=== PATIENT | male | born 1995 ===

== ENCOUNTER 2017-09-07 03:03 | Inpatient (IN) | payer OTHER ==
--- NOTE | 2017-09-07 03:31 | C.PDOC ---
History Of Present Illness 22 year old male presents to the ER as a psych transfer from [facility] for admission. Denies physical complaints at this time. Chief Complaint (Nursing): Psychiatric Evaluation History Per: Patient History/Exam Limitations: no limitations Onset/Duration Of Symptoms: Days Current Symptoms Are (Timing): Still Present Involuntary Hold By: None Past Medical History Reviewed: Historical Data, Nursing Documentation, Vital Signs Vital Signs: Last Vital Signs Temp 97.9 F 09/07/17 03:06 Pulse 74 09/07/17 03:06 Resp 19 09/07/17 03:06 BP 125/72 09/07/17 03:06 Pulse Ox 100 09/07/17 03:32 Family History: States: Unknown Family Hx - Social History Hx Alcohol Use: No Hx Substance Use: No Review Of Systems Constitutional: Negative for: Fever, Chills Cardiovascular: Negative for: Chest Pain, Palpitations Respiratory: Negative for: Cough, Shortness of Breath Gastrointestinal: Negative for: Nausea, Vomiting, Abdominal Pain Physical Exam - Physical Exam Appears: Non-toxic, No Acute Distress Skin: Normal Color, Warm, Dry Head: Atraumatic, Normacephalic Eye(s): bilateral: Normal Inspection Oral Mucosa: Moist Neck: Normal, Supple Chest: Symmetrical, No Tenderness Cardiovascular: Rhythm Regular Respiratory: Normal Breath Sounds, No Rales, No Rhonchi, No Wheezing Gastrointestinal/Abdominal: Soft, No Tenderness Neurological/Psych: Oriented x3, Normal Speech ED Course And Treatment O2 Sat by Pulse Oximetry: 100 Disposition Discussed With : Lauren Mckeon Doctor Will See Patient In The: Hospital Counseled Patient/Family Regarding: Diagnosis - Disposition Disposition: HOSPITALIZED Disposition Time: :29 Condition: STABLE - POA Present On Arrival: None - Clinical Impression Clinical Impression: Bipolar 1 disorder - Scribe Statement The provider has reviewed the documentation as recorded by the Scribe Hemanth Crystal All medical record entries made by the Scribe were at my direction and personally dictated by me. I have reviewed the chart and agree that the record accurately reflects my personal performance of the history, physical exam, medical decision making, and the department course for this patient. I have also personally directed, reviewed, and agree with the discharge instructions and disposition.
[2017-09-07 04:10] VITALS: O2SAT 99
--- NOTE | 2017-09-07 05:18 | PCM.BM ---
<GraysonHema - Last Filed: 09/07/17 05:14> Treatment Plan Problems - Problems identified on initial assessmt Psychosis/ Manic Date Initiated: 09/07/17 Time Initiated: 04:35 Assessment reference: NA Status: Active Treatment assets and liabiliti Patient Assests: cooperative, educated, self-reliant, ADL independent, physically healthy, good support system, negotiates basic needs Patient Liabilities: financial problems - Milieu Protocol Maintain good personal hygiene: daily Encourage regular showers, daily Remind patient to perform daily oral care, daily Assist patient to perform ADL's Maintain personal safety: every shift Educate patient to report safety concerns to staff, every shift Monitor environment for contraband/sharps Medication safety: Monitor for expected outcome, potential side effects: every shift, Assess barriers to learning: every shift, Assess readiness for medication education: every shift <Luz Shultz - Last Filed: 09/09/17 10:38> Family Contact Family involvement: Family/SO is involved Family contact: Patient agrees to contact Family contact name: Mili Family contacted how many times per week?: 2 - Goals for Treatment Patient goals for treatment: "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 ) <Nori Oleary - Last Filed: 09/09/17 13:46> - Diagnosis (1) Bipolar 1 disorder Status: Acute Interventions: 09/09/17 13:46 * Assess/adjust medications daily and /or as needed * See patient on an individual basis 7x/week to assess level of manic behaviors and stability * Discuss risks, benefits, side effects and alternatives of medications *
--- NOTE | 2017-09-07 10:33 | PCM.PSYCH ---
Initial Psychiatric Evaluation - Initial Psychiatric Evaluation Type of Admission: Voluntary Legal Status: Capacity Chief Complaint (in patient's own words): "I feel great" History of Present Illness and Precipitating Events: Patient is a 22-year-old male with no significant past medical history or psychiatric history, was escorted to the hospital because of manic and paranoid behavior. Patient appeared somewhat disorganized and internally preoccupied throughout the interview. 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 Patient was brought to the emergency room by his cousin because his work seemed "off" the last several days. He also found out from the patient' s mother that the patient was not sleeping for the past five days. Patient states that he does not feel the need to sleep and thinks his time would be better spent working. Patient was reading business textbooks and watching business documentaries all night and states that he would sleep an hour or two before waking up and starting again. 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 Patient reportedly feels great, incredibly motivated, and is not sure why he is in the hospital. He appeared paranoid and delusional during the interview. He appeared to have racing thoughts, flight of ideas and poor concentration. However, he denied any SI/HI. He denied drinking or any substance abuse. PMH: None reported Current Medications: Active Medications Generic Name Dose Route Start Last Admin Trade Name Freq PRN Reason Stop Dose Admin Benztropine Mesylate 1 mg 09/07/17 05:17 Cogentin PO BID PRN EPS Hydroxyzine HCl 25 mg 09/07/17 05:16 Atarax PO Q6H PRN Anxiety Pneumococcal Polyvalent Vaccine 0.5 ml 09/10/17 10:30 Pneumovax 23 Vaccine IM 09/10/17 10:31 .ONCE ONE Risperidone 0.5 mg 09/07/17 10:00 09/07/17 10:32 Risperdal Tab PO Not Given BID ANTHONY Trazodone HCl 50 mg 09/07/17 05:17 Desyrel PO HS PRN INXOMNIA Past Psychiatric History - Past Psychiatric History Previous Treatment History: None Pertinent Medical Hx (Current Medical&Sleep Prob, Allergies): Allergies Allergy/AdvReac Type Severity Reaction Status Date / Time No Known Allergies Allergy Verified 09/07/17 03:16 No Known Home Med 09/07/17 Review of Systems - Review of Systems All systems: reviewed and no additional remarkable complaints except - Psychiatric Psychiatric: As Per HPI, Abnormal Sleep Pattern, Behavioral Changes, Change in Appetite, Irritability, Mood Swings, Paranoia Mental Status Examination - Personal Presentation Personal Presentation: Looks stated age - Affect Affect: Broad, Blunted - Motor Activity Motor Activity: Psychomotor Agitation - Reliability in Providing Information Reliability in Providing Information: Poor, due to alteration in thoughts, Poor , due to altered mood - Speech Speech: Disorganized, Tangential - Mood Mood: Anxious, Euphoric - Formal Thought Process Formal Thought Process: Paranoia, Loosening of associations, Flight of ideas - Hallucinations/Delusions Delusions: Granduer - Obsessions/Compulsions Obsessions: No Compulsions: No - Cognitive Functions Orientation: Person, Place, Situation, Time Sensorium: Alert Attention/Concentration: Attentive Abstract Thinking: [place] Estimate of Intelligence: Below average Judgement: Imparied, as evidence by: Poor judgement, Imparied, as evidence by: Lack of insight into illness Memory: Recent intact, as evidence by: Ability to recall events of the day, Remote intact, as evidenced by: Abilit to recall sig. life events - Risk Risk: Elopement, Diminished functioning - Strength & Assets Inventory Strength & Assets Inventory: Intelligence, Family support, Education, Employment status, Employment history, Skills, Interests/hobbies, Life experience, Cooperative DSM 5 DX - DSM 5 DSM 5 Diagnosis: Bipolar disorder manic severe with psychotic features - Recommended/Plan of Treatment Treatment Recommendations and Plan of Treatment: Bipolar disorder manic severe with psychotic features -CBT -Psychoeducation -Supportive therapy, group therapy, individual therapy -Depakote 250 mg PO BID -Risperdal 0.5 mg PO BID -Trazodone 50 mg by mouth daily at bedtime - Smoking Cessation Smoking Cessation Initiated: No
[2017-09-07] MEDS: Divalproex 250 mg DR Tab PO SCH ×2 (14:36→17:15)
[2017-09-08] MEDS: Divalproex 250 mg DR Tab PO SCH (10:55)
--- NOTE | 2017-09-08 11:03 | PCM.PYCHPN ---
Psychiatric Progress Note - Psychiatric Progress Note Patient seen today, length of contact: 15 min Patient Chief Complaint: "I feel great" Problems Identified/Issues Discussed: Patient seen and evaluated, chart reviewed and discussed with the nurse. Patient reports some improvement in his racing of thoughts and flight of ideas. He remained isolated, and withdrawn. Patient reports improvement in his anxiety and irritability. Patient is compliant with medications and denies any side effects. Symptoms are improving but need more time to stabilize. Support and psychoeducation given. Had a family meeting yesterday, with patient's family, consisting of his cousin , his girlfriend, and his mother. Family states that patient did in fact appear "off" the last several days. Mother knew something was different, but she did not attribute the dramatic increase in motivation to anything serious. Cousin states that he knew something was going on when the patient was forgetting to do minor tasks at his job because he was so caught up in these other extravagant activities. Family states that they will discuss everything with the patient and try to have him understand all of the changes they have been seeing in his personality over the last several days. Patient feels no change in personality today Medication Change: Yes (increase depakote ) Medical Record Reviewed: Yes Mental Status Examination - Cognitive Function Orientation: Person, Place, Situation, Time Memory: Intact Attention: WNL Concentration: WNL Association: WNL Fund of Knowledge: Poor - Mood Mood: Anxious - Affect Affect: Broad - Speech Speech: Soft - Formal Thought Process Formal Thought Process: Flight of ideas - Suicidal Ideation Suicidal Ideation: No - Homicidal Ideation Homicidal Ideation: No Goal/Treatment Plan - Goal/Treatment Plan Need for Continued Stay: Severe depression anxiety, Severe functional impairment Progress Toward Problem(s) and Goals/Treatment Plan: Bipolar disorder manic severe with psychotic features -CBT -Psychoeducation -Supportive therapy, group therapy, individual therapy -Depakote 500 mg PO BID -Risperdal 1 mg PO QHS -Trazodone 50 mg by mouth daily at bedtime
[2017-09-08] MEDS ORDERED: Divalproex 500 mg DR Tab PO SCH (18:00)
[2017-09-08] MEDS ORDERED: Divalproex 250 mg DR Tab PO STA (18:42)
[2017-09-09 06:25] VITALS: RESP 20; TEMP 97.5
--- NOTE | 2017-09-09 09:52 | PCM.PYCHDC ---
Mental Status Examination - Mental Status Examination Orientation: Person, Place, Situation, Time Memory: Intact Mood: Neutral Affect: Constricted Speech: Soft Attention: WNL Concentration: WNL Association: WNL Fund of Knowledge: WNL Formal Thought Process: No Impairment Description of patient's judgement and insight: good, fair Psychotic Thoughts and Behaviors: denies any AVH Suicidal Ideation: No Current Homicidal Ideation?: No Discharge Summary - Discharge Note Reason for Hospitalization: Patient is a 22-year-old male with no significant past medical history or psychiatric history, was escorted to the hospital because of manic and paranoid behavior. Patient appeared somewhat disorganized and internally preoccupied throughout the interview. 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 Patient was brought to the emergency room by his cousin because his work seemed "off" the last several days. He also found out from the patient' s mother that the patient was not sleeping for the past five days. Patient states that he does not feel the need to sleep and thinks his time would be better spent working. Patient was reading business textbooks and watching business documentaries all night and states that he would sleep an hour or two before waking up and starting again. 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 Patient reportedly feels great, incredibly motivated, and is not sure why he is in the hospital. He appeared paranoid and delusional during the interview. He appeared to have racing thoughts, flight of ideas and poor concentration. However, he denied any SI/HI. He denied drinking or any substance abuse. Consultations:: List each consultation separately and include: 1. Reason for request. 2. Findings. 3. Follow-up Summary of Hospital Course include:: 1. Description of specific treatment plan utilized for patients during their course of treatmen. 2. Summarize the time- course for resolution of acute symptoms and/or regressed behaviors. 3. Describe issues identified and worked on during hospitalization. 4. Describe medication utilized. 5. Describe medical problems identified and treated. 6. Reassessment of suicide risk Summary of Hospital Course: During the course of his stay, patient (pt) started progressively improving and he no longer remained anxious and irritable and paranoid. He tolerated the medications and denied any adverse effects sweating, tremors or stiffness. He started attending groups and meetings and started socializing. He denied any feelings of hopelessness, helplessness, and worthlessness, denied any problem with the sleep or appetite, denied suicidal ideation or homicidal ideation. Pt denied any auditory or visual hallucinations. Patient remained calm and cooperative and remained compliant with the medications. Patient tolerated the medications very well and denied any side effects. Pt was discharge to the [facility]. Had a meeting wiith the mother, after discharge. As per the mother he doesn't have any illness. Spoke with the father, he admits that he was not sleeping well. - Final Diagnosis (DSM 5) Condition upon Discharge: STABLE DSM 5: Bipolar disorder manic severe with psychotic features Disposition: HOME/ ROUTINE Follow-up Treatment Plan: Follow-up Treatment Plan: Education: Pt was educated and counseled about the risks and benefits of taking and not taking medications. Pt was educated and counseled about the risks of drinking and abusing drugs. Pt was educated and counseled to go to the ER or call 911 if pt develop suicidal ideation or homicidal ideation, worsening of symptoms or severe side effects of the meds. Prescriptions/Medication Reconciliation: Benztropine [Cogentin] 1 mg PO HS PRN #30 tab PRN Reason: EPS Divalproex [Depakote DR] 250 mg PO BID #60 tcp risperiDONE [RisperDAL Tab] 1 mg PO HS #30 tab - Smoking Cessation Smoking Cessation Medication prescribed: No - Antipsychotic Medications Pt discharged on 2 or more routine antipsychotic medications: No
[2017-09-09] MEDS ORDERED: Divalproex 250 mg DR Tab PO SCH (10:00)
[2017-09-09 10:25] VITALS: BP 130/82; PULSE 92
[2017-09-10] MEDS ORDERED: Influenza Vaccine 60 mcg/0.5 mL SYR (4YR UP) IM ONE (10:00)
[2017-09-10] MEDS ORDERED: Pneumococcal 23-Valent Vaccine IM ONE (10:30)
== END 2017-09-09 11:00 | disposition home or self-care (01) | DRG 430 ==
LOC: C.ER 03:03 → C.5E 03:32
PROVIDERS: ADMIT Psychiatry & Neurology Psychiatry; ATTEND Psychiatry & Neurology Psychiatry
PROC: GZHZZZZ Group Psychotherapy (ICD-10-PCS; principal; 2017-09-07)
PROC: GZ58ZZZ Individual Psychotherapy, Cognitive-Behavioral (ICD-10-PCS; 2017-09-07)
PROC: GZ56ZZZ Individual Psychotherapy, Supportive (ICD-10-PCS; 2017-09-07)
DX: F31.2 Bipolar disorder, current episode manic severe with psychotic features (principal); G47.8 Other sleep disorders